=== PATIENT | male | born 1980 | race Caucasian/White ===

== ENCOUNTER 2021-08-08 09:10 | Day surgery (SDC) | payer BC, SELFPAY ==
[2021-08-08] VITALS (11 sets, daily range): BP systolic 94–134; BP diastolic 53–77; PULSE 63–85; RESP 14–18; TEMP 36.9–38.3; O2SAT 93–100; BMI 23.2
--- NOTE | 2021-08-08 | APP_PTH ---
PATIENT: EJNNIFER SORIA LOC: [facility] – [place] U#:[id number] AGE/SX: 41/M ROOM: RE08/08/[address]: Dr. Linda Arevalo MD : 1980 BED: DIS: 08/08/2021 SPEC #: [id number] RECD: 08/09/21 09:56 STATUS: GAY RECristopher #: [id number] BRANDON: 08/08/21 00:[address]: Linda Arevalo DEPT: SURGICAL PATHOLOGY RECD BY: Pierre Boyle ENTERED: 08/09/21 09:56 SP TYPE: APPENDIX OTHR DR: Dr. Brooks Negrete MD Tissues: Appendix, NOS Procedures: Surgery Specimen Level III HEADER OPERATION: Laparoscopic appendectomy PRE-OP DIAGNOSIS: Appendicitis TISSUE SUBMITTED: Appendix MICROSCOPIC DIAGNOSIS Appendix, appendectomy: Acute appendicitis and periappendicitis. KOREY:ava 08/10/2021 MICROSCOPIC DESCRIPTION Slides are reviewed. GROSS DESCRIPTION Received in fixative is one container labeled with the patient's name and designated appendix. The specimen consists of an appendix with attached periappendiceal adipose tissue. The appendix measures 6.5 cm in length and 0.7 cm in diameter. The periappendiceal adipose tissue measures up to 2 cm in width. No obvious perforation is identified. The serosal surface shows focal soria, purulent exudate. No fecalith is identified. Brass Sorter sections are submitted in one cassette. / SJ:ava 08/09/21 TC:2 [facility]: [id number]
--- NOTE | 2021-08-08 09:36 | ED.VIS.GI ---
HPI HPI - GI History of Present Illness Chief Complaint: Abd Pain Narrative Narrative: 41-year-old male presenting with right lower quadrant pain which began last evening. He does admit to a couple episodes of nausea and vomiting. He denies diarrhea or constipation. He denies urinary symptoms. He has not had a fever. Patient has no history of surgeries in his abdomen. He denies any trauma. He states he has no medical problems. Patient has no history of kidney stones. PFSH PFSH Medical History no medical history Home Medications NK 08/08/21 [History Last Taken Unknown] Allergy/AdvReac Type Severity Reaction Status Date / Time Penicillins [PCN] AdvReac Other Verified 08/08/21 09:12 Social History Smoking Status: Current every day smoker tobacco type: cigarettes ROS ROS ED Constitutional Constitutional ED: Denies chills or fever(s) ENT ENT ED: Denies rhinorrhea or sore throat Cardiovascular Cardiovascular: Denies chest pain or palpitations Respiratory/Chest Respiratory/Chest: Denies cough, dyspnea or sputum Gastrointestinal Gastrointestinal: Reports abdominal pain, nausea and vomiting; Denies constipation or diarrhea Genitourinary Genitourinary ED: Denies dysuria, hematuria or urinary frequency Musculoskeletal Musculoskeletal: Denies arthralgias or myalgias Integumentary Denies Abrasions or rash Neurologic Neurologic: Denies headache(s) or paresthesias EXAM Physical Exam Const Vital Signs: 08/08/21 09:12 08/08/21 12:11 08/08/21 12:28 Temperature 98.7 F 98.6 F 98.6 F Temperature Source Temporal Oral Oral Pulse Rate 68 63 64 Respiratory Rate 14 16 16 Respiratory Pattern Blood Pressure 102/66 134/77 H 131/76 H Blood Pressure Mean 78 96 94 Blood Pressure Source Monitor Blood Pressure Position Semi-Fowlers Blood Pressure Location Right Arm Pulse Ox 96 97 98 Oxygen Delivery Method Room Air Room Air Room Air 08/08/21 12:54 Temperature Temperature Source Pulse Rate Respiratory Rate Respiratory Pattern Normal Blood Pressure Blood Pressure Mean Blood Pressure Source Blood Pressure Position Blood Pressure Location Pulse Ox Oxygen Delivery Method Positive well nourished General Appearance ED: NAD; Negative for pallor HEENT Reports moist mucous membranes normocephalic and atraumatic Eyes PERRL and EOMs intact bilaterally Resp normal respiratory effort and clear to auscultation bilaterally Cardio regular rate and regular rhythm GI non-distended GI Narrative: Tenderness palpation right lower quadrant. Back/Spine no CVA tenderness Neuro CN's II-XII intact bilaterally Sensorium / Orientation: alert, oriented to person, oriented to place and oriented to time Psych mental status grossly normal and thought process normal Skin General Skin Exam: Negative for jaundice or pallor Rashes: no rashes MDM MDM MDM Narrative Medical decision making narrative: 41-year-old male presenting with right lower quadrant pain. He did obtain blood work and he does have a leukocytosis of 17.6 with a left shift. Renal function electrolytes are normal. Total bilirubin is slightly elevated 1.4. Urinalysis negative for infection. Patient was given morphine and Zofran for pain and nausea respectively. CT of the abdomen pelvis with p.o. and IV contrast was obtained and does show concern for acute appendicitis. Discussed with Dr. Arevalo who will take the patient to the OR for appendectomy. Patient was given Rocephin and azithromycin because he is penicillin allergic. Patient stable on transfer to the OR. Impression: 1. Acute appendicitis Lab Data Attestation: I reviewed the patient's lab results. Labs: Laboratory Results - last 24 hr 08/08/21 08/08/21 08/08/21 09:30 09:30 10:52 WBC 17.6 H RBC 5.48 Hgb 17.2 H Hct 50.4 MCV 92.0 MCH 31.4 MCHC 34.1 RDW Std Deviation 43.6 RDW Coeff of Emily 12.8 Plt Count 211 MPV 9.7 Immature Gran % (Auto) 0.300 Neut % (Auto) 86.2 H Lymph % (Auto) 7.0 L [place] % (Auto) 6.0 Eos % (Auto) 0.2 Baso % (Auto) 0.3 Absolute Neuts (auto) 15.2 H Absolute Lymphs (auto) 1.24 Nucleated RBC % 0 Sodium 139 Potassium 4.7 Chloride 104 Carbon Dioxide 27.0 Anion Gap 8 BUN 11 Creatinine 1.05 Estim Creat Clear Calc 82.16 Est GFR (MDRD) Af Amer 101 Est GFR (MDRD) Non-Af 83 BUN/Creatinine Ratio 10.5 Glucose 107 H Calcium 9.1 Total Bilirubin 1.40 H Direct Bilirubin 0.22 AST 32 ALT 51 Alkaline Phosphatase 81 Total Protein 7.7 Albumin 4.0 Globulin 3.7 Albumin/Globulin Ratio 1.1 Urine Color Yellow Urine Clarity Clear Urine pH 7.0 Ur Specific [place] 1.005 Urine Protein Negative Urine Glucose (UA) Normal Urine Ketones 5 H Urine Occult Blood Negative Urine Nitrite Negative Urine Bilirubin Negative Urine Urobilinogen Normal Ur Leukocyte Esterase 25 H Urine RBC 0 SEEN Urine WBC 0-5 SEEN Ur Squamous Epith Cells 0 SEEN Urine Bacteria 0 SEEN Urine Mucus 0 SEEN Radiography Diagnostic Testing: Radiology Impression Abdomen/Pelvis CT 08/08/21 11:22 IMPRESSION: Acute uncomplicated appendicitis Indeterminate 7 mm right hepatic lobe lesion (correlate nonemergent ultrasound/MRI) Additional nonemergent findings, as above Electronically Signed: Akil Saul DO at 11:50 EDT Tel , Service support , ADDENDUM: 08/08/21 1209 IMPRESSION: Acute uncomplicated appendicitis Indeterminate 7 mm right hepatic lobe lesion (correlate nonemergent ultrasound/MRI) Additional nonemergent findings, as above N.B. : The above Results were Read Back by Akil Saul DO to Maco Gomez MD, and understanding confirmed on 08/08/2021 12:02:15 (ET). Electronically Signed: Akil Saul DO at 11:50 EDT Tel , Service support , Discharge Plan Disposition Disposition: Acute Care Hospital [facility] Discharge Date/Time: 08/08/21 12:29
[2021-08-08 09:42] LABS: Absolute Lymphocyte Count 1.24 X10^3/uL (0.83-4.51); Absolute Neutrophil Count 15.2 X10^3/uL (2.0-7.7); Basophil# 0.05 X10^3/uL; Basophil% 0.3 % (0-1); Eosinophil# 0.04 X10^3/uL; Eosinophils% 0.2 % (0-5); Hematocrit 50.4 % (40-54); Hemoglobin 17.2 g/dL (13.0-16.5); Lymphocyte # 1.24 X10^3/ul (0.83-4.51); Mean Corp Hgb Conc 34.1 g/dL (32-36); Mean Corpuscular Hgb 31.4 pg (27.0-32.0); Mean Platelet Vol. 9.7 fl (6.2-12.0); Monocyte# 1.06 X10^3/uL; NRBC Flagged by Analyzer 0 % (0-5); Neutrophil # 15.17 X10^3/uL (2.7-7.7); Neutrophil % 86.2 % (47-70); Platelet Count 211 K/mm3 (150-450); RBC Distribution Width CV 12.8 % (11.6-14.6); RBC Distribution Width SD 43.6 fl (35.1-43.9); Red Blood Count 5.48 M/mm3 (4.6-6.2); White Blood Count 17.6 K/mm3 (4.4-11.0)
[2021-08-08 10:03] LABS: ALB/GLOB Ratio 1.1 RATIO (0.9-2.4); AST(SGOT) 32 U/L (15-37); Alanine Aminotransfer ALT/SGPT 51 U/L (16-61); Alkaline Phosphatase 81 U/L (45-117); Anion Gap 8 (5-15); BUN 11 mg/dL (7-18); BUN/Creat Ratio 10.5 RATIO (10-20); Bilirubin, Direct 0.22 mg/dL (0.00-0.30); Calcium,Total 9.1 mg/dL (8.5-10.1); Chloride 104 mmol/L (98-107); Creatinine, Serum 1.05 mg/dL (0.70-1.30); EST Glomerular Filtration Rate 83 mL/min (>60); Est Glom Filt Rate - Afr Amer 101 mL/min (>60); Estimated Creatinine Clearance 82.16 ml/min; Globulin 3.7 g/dL (2.2-4.2); Glucose 107 mg/dL (74-106); Potassium 4.7 mmol/L (3.5-5.1); Protein, Total 7.7 g/dL (6.4-8.2); Sodium Level 139 mmol/L (136-145)
[2021-08-08] MEDS: Morphine 4 MG/ML Syringe IV ×2 (10:06→12:00)
[2021-08-08] MEDS: Ondansetron 4 MG/2 ML Vial IV (10:07)
[2021-08-08] MEDS: 0.9% Normal Saline 1,000 ML 1000 ML IV (10:08)
[2021-08-08 10:58] LABS: Bacteria 0 SEEN /hpf (None Seen); Mucous, Urine 0 SEEN /hpf (<or=2+); Red Blood Cells-Urine 0 SEEN /hpf (0-5); Squamous Epithelial Cells - UA 0 SEEN /hpf (0-5)
[2021-08-08 10:59] LABS: Color, Urine Yellow (Yellow); Glucose, Dipstick Normal (Normal); Ketone-Dipstick 5 mg/dl (Negative); Leukocyte Esterase-Dipstick 25 /ul (Negative); Nitrite-Dipstick Negative (Negative); Occult Blood-Urine Negative /ul (Negative); Protein-Dipstick Negative (Negative); Specific Gravity, Urine 1.005 (1.002-1.030); Urine Bilirubin Dipstick Negative (Negative); Urine Clarity Clear (Clear); Urine Urobilinogen Normal (Normal)
[2021-08-08 11:09] LABS: White Blood Cells 0-5 SEEN /hpf (0-5)
--- NOTE | 2021-08-08 11:22 | CT_ITS ---
We are attempting to reach an attending provider to discuss findings. An addendum with communication details will be sent when the communication is complete. STUDY: CT ABDOMEN AND PELVIS WITH CONTRAST REASON FOR EXAM: Male, 41 years old. RLQ pain -- IV PO Contrast RADIATION DOSAGE (If Supplied By Facility): CTDIvol = ( 14.20 ) mGy, DLP = ( 633.65 ) mGycm TECHNIQUE: Transaxial images were obtained from the dome of the diaphragm to the symphysis pubis with oral contrast. Oral and amp; IV Gastrografin and amp; 100mL Isovue-370 was administered. Sagittal and coronal images were reconstructed. Individualized dose optimization techniques were used for this CT. COMPARISON: None. FINDINGS: Lung bases: Mild air trapping/congestion. Heart: Unremarkable. Liver: Indeterminant low-density right hepatic lobe lesion measuring greater than simple cyst and measuring 7 mm (axial image 26 series 2). No additional hepatic lesions identified. Portal vein patent. Gallbladder/biliary ducts: Unremarkable. Pancreas: Unremarkable. Spleen: Unremarkable. Adrenal glands: Unremarkable. Kidneys/ureters/bladder: Unremarkable. Prostate: Unremarkable. Large bowel/small bowel: Constipation. No acute large bowel or small bowel process. Appendix: Distended appendix with inflammatory changes. No perforation. No abscess. Appendix measures up to 1 cm proximally (axial image 90 series 2). Gastroesophageal junction/stomach: Unremarkable. Retroperitoneum/lymph nodes: No intra-abdominal free air. No ascites. No pathologically enlarged lymph nodes. Vascular: Unremarkable. Osseous structures: Mild degenerative features. No acute process. Subcutaneous/soft tissues: Unremarkable. CT/Abdomen/Pelvis WITH Contrast IMPRESSION: Acute uncomplicated appendicitis Indeterminate 7 mm right hepatic lobe lesion (correlate nonemergent ultrasound/MRI) Additional nonemergent findings, as above Electronically Signed: Akil Saul DO at 11:50 EDT Tel , Service support ,
--- NOTE | 2021-08-08 11:55 | NURSING ---
SURGERY [facility] ACUTE APPENDICITIS
--- NOTE | 2021-08-08 12:00 | PCM.HP.STD ---
HPI - General HPI Narrative JENNIFER SORIA, is a 41 M who presents to the ER due to right lower quadrant abdominal pain started about midnight last night. Patient did have nausea and vomiting as well. CT abdomen pelvis was consistent with acute appendicitis Patient never had any abdominal surgeries. Patient's white blood cell count on admission is 17.6 Patient last ate last night. PFSH Medical History no medical history Allergy/AdvReac Type Severity Reaction Status Date / Time Penicillins [PCN] AdvReac Other Verified 08/08/21 09:12 Social History Smoking Status: Current every day smoker tobacco type: cigarettes Vital Signs Vital Signs Vital Signs: 08/08/21 09:12 Temperature 98.7 F Temperature Source Temporal Pulse Rate 68 Respiratory Rate 14 Blood Pressure 102/66 Blood Pressure Mean 78 Pulse Ox 96 Oxygen Delivery Method Room Air Weight Weight: 139 lb 12.369 oz Body Mass Index (BMI) 23.2 Physical Exam Const alert, oriented x3 and no apparent distress HEENT normocephalic and head/scalp atraumatic Resp normal respiratory effort Cardio regular rate GI soft to palpation; Negative for non-distended Palpation: tender RLQ and Rovsing's sign; Negative for guarding Extremity no clubbing, cyanosis or edema Neuro CN's II-XII intact bilaterally Psych mental status grossly normal Results Lab / Micro Data Result Diagrams: 08/08/21 09:30 08/08/21 09:30 Labs: Laboratory Results - last 24 hr 08/08/21 09:30: WBC 17.6 H, RBC 5.48, Hgb 17.2 H, Hct 50.4, MCV 92.0, MCH 31.4, MCHC 34.1, RDW Std Deviation 43.6, RDW Coeff of Emily 12.8, Plt Count 211, MPV 9.7, Immature Gran % (Auto) 0.300, Neut % (Auto) 86.2 H, Lymph % (Auto) 7.0 L, [place] % (Auto) 6.0, Eos % (Auto) 0.2, Baso % (Auto) 0.3, Absolute Neuts (auto) 15.2 H, Absolute Lymphs (auto) 1.24, Nucleated RBC % 0 08/08/21 09:30: Sodium 139, Potassium 4.7, Chloride 104, Carbon Dioxide 27.0, Anion Gap 8, BUN 11, Creatinine 1.05, Estim Creat Clear Calc 82.16, Est GFR (MDRD) Af Amer 101, Est GFR (MDRD) Non-Af 83, BUN/Creatinine Ratio 10.5, Glucose 107 H, Calcium 9.1, Total Bilirubin 1.40 H, Direct Bilirubin 0.22, AST 32, ALT 51, Alkaline Phosphatase 81, Total Protein 7.7, Albumin 4.0, Globulin 3.7, Albumin/Globulin Ratio 1.1 08/08/21 10:52: Urine Color Yellow, Urine Clarity Clear, Urine pH 7.0, Ur Specific [place] 1.005, Urine Protein Negative, Urine Glucose (UA) Normal, Urine Ketones 5 H, Urine Occult Blood Negative, Urine Nitrite Negative, Urine Bilirubin Negative, Urine Urobilinogen Normal, Ur Leukocyte Esterase 25 H, Urine RBC 0 SEEN, Urine WBC 0-5 SEEN, Ur Squamous Epith Cells 0 SEEN, Urine Bacteria 0 SEEN, Urine Mucus 0 SEEN Micro: Microbiology 08/08/21 10:05 Nasal Secretion SARS-CoV-2 Antigen (Rapid) - Final Radiology Impression Abdomen/Pelvis CT 08/08/21 11:22 IMPRESSION: Acute uncomplicated appendicitis Indeterminate 7 mm right hepatic lobe lesion (correlate nonemergent ultrasound/MRI) Additional nonemergent findings, as above Electronically Signed: Akil Saul DO at 11:50 EDT Tel , Service support , Assessment & Plan Assessment/Plan (1) Acute appendicitis: PLAN: 1. Discussed procedure laparoscopic appendectomy, possible open, possible bowel resection along with the risk but not limited to bleeding, infection/abscess, injury to another organ (small bowel, colon, etc.), adhesion, hernia at incision sites, and anesthesia. Patient no further question this time. Linda Arevalo M.D. Pager: [phone] [facility] [address] [place] [address], [address] [place] [id number] Office: [phone] Procedure Criteria Type of Procedure Procedure Type: Elective Elective Risks - COVID COVID Risk Discussion: The surgeon/proceduralist and patient have discussed in detail the risk of exposure to and/or potential harm posed by the COVID-19 virus with having a surgery/procedure at this time versus the risk of delaying the surgery/procedure. It is not possible to know either the risk of delaying the surgery or procedure or chance of getting an infection with perfect accuracy, but a joint decision was made between the patient and the surgeon/proceduralist to proceed at this time with the scheduled surgery/procedure as indicated on the consent form.
[2021-08-08] MEDS: Ciprofloxacin 400 MG/200 ML BAG 200 MG IV (12:05)
[2021-08-08] MEDS: 0.9% Normal Saline 1,000 ML 100 ML IV (12:57)
[2021-08-08] MEDS: metroNIDAZOLE 500 MG/100 ML BAG 100 MG IV (14:30)
[2021-08-08] MEDS: Lidocaine 1% /Epi 1:100 (20ml) 20 ML Vial (15:05)
--- NOTE | 2021-08-08 15:11 | PCM.OPRPT ---
Report of Operation Date of Procedure: 08/08/21 Pre-Operative Diagnosis: Acute appendicitis Post-Operative Diagnosis: Same Surgery/Procedure Performed:: Laparoscopic appendectomy Surgeon: Linda Arevaol Type of Anesthesia: General/Supplemental Anesthesiologist: Wojciech Najera Special Medications: Cipro 40 mg IV x1 Flagyl 500 mg IV x1 Specimen's removed: Appendix Estimated Blood Loss (mL): < 10 cc Description of Procedure: Indications: 41-year-old male presented to the ER with new right lower quadrant pain at midnight. On workup he was found to have acute appendicitis on CT and a leukocytosis of 17.6. Patient was started on antibiotics in the ER for acute appendicitis-Cipro/Flagyl IV Description of the procedure: The patient was placed on operating table in supine position. General anesthesia was induced. A timeout was completed verifying correct patient, procedure, position and special equipment prior to beginning procedure. Abdomen was prepped and draped in usual sterile fashion. Incision was made in the natural skin line above the umbilicus with a 15 blade scalpel. The fascia was elevated and incised. Entry into the peritoneum was confirmed visually and no bowel was noted in the vicinity of the incision. The Foote trocar was placed under direct vision. Abdomen insufflated with a pressure of 12-15 mmHg. Patient tolerated insertion well. The scope was inserted and the abdomen inspected. No injuries from initial trocar placement were noted. Minimal amount of fluid was seen in the right lower quadrant. An direct visualization 2 -5 mm trocars were placed one above the symphysis pubis and below the hairline and one in the left lower quadrant lateral to the rectus muscle. Care is taken to avoid injury to the bladder and inferior epigastric vessels. The table was placed in Trendelenburg position with the right side elevated. The appendix was grasped with atraumatic grasper and elevated. It was noted to be inflamed. A window was developed in the mesoappendix at the point between the base of the appendix and the cecum. An endoscopic 45 mm linear cutting stapler blue load was then used to divide and staple the base of the appendix. Enseal was used to divide the mesoappendix The appendix was withdrawn into the Foote trocar after being placed endoscopically retrieval bag. Appendix was sent to pathology. Hemostasis was assured at the appendiceal staple line. no other pathology was identified. Secondary trochars were removed under direct visualization. No bleeding was noted trocar sites. The laparoscope withdrawn and the umbilical trocar removed. The abdomen was allowed to collapse. Local anesthesia of 20 mL of lidocaine with epinephrine was used at the incision sites. The umbilical trocar site was closed with the [id number] 0 Vicryl suture. The skin was closed up to clear sutures of 4-0 Monocryl and Steri-Strips. The patient was extubated. The patient tolerated the procedure well and was taken to the postanesthesia care unit in satisfactory condition. Complications none
--- NOTE | 2021-08-08 15:14 | EX.PCM.DISCH ---
Discharge Instructions Diet Discharge Diet: Light diet - advance as tolerated Activity Discharge Activity: May Not Drive (while taking narcotic pain medications.) May shower in (days): 1 Lifting Restrictions: no lifting >20 lbs x 2 wks, no strenuous exercise for 4 wks Dressing / Incision Call your doctor if your incision/area has: Continuous Slow Oozing, Sudden Increased Bleeding, Increased Pain/ Swelling, Increased Redness, Foul Smelling Discharge and Swelling at the incision site Call your doctor if you observe: Fever of 101 or Higher Remove Dressing in: 2 days Cleanse incision/area with: Soap & Water Additional Dressing/Incision Instructions:: Steri-Strips will fall off in 7 to 10 days, if they do not fall off okay to remove after 10 days. Follow Up Care Please Follow Up With: Linda Arevalo MD When: Call the office for a follow-up appointment 2 weeks; after 5 PM and on the weekends call [phone] with any concerns. Test Results: Test results from this visit will be discussed in further detail at your follow-up appointment, if applicable. Discharge Plan Admission Attending Provider: Linda Arevalo Primary Care Provider: Kurtis Negrete Discharge Orders/Prescriptions Prescriptions: New oxycodone-acetaminophen [Endocet] 5-325 mg tablet 1 - 2 tab PO Q6H PRN (Reason: pain) 3 Days Qty: 14 RF: 0 No Action NK RF: 0 Referrals / Follow Up: Kurtis Negrete MD [Primary Care Provider] - Disposition Disposition (needs filled in before D/C Order can be placed): Home, Self Care
[2021-08-08] MEDS: oxyCODONE 5 MG Tablet PO (17:09)
[2021-08-08] MEDS: Acetaminophen 325 MG Tablet 650 MG PO (17:12)
== END 2021-08-08 18:23 | disposition home or self-care (01) ==
LOC: ED 11:50 → SDC 11:58 → AC 12:00
PROVIDERS: Emergency Provider Student in an Organized Health Care Education/Training Program; PCP Family Medicine; Visit Provider Surgery
PROC: 0DTJ4ZZ Resection of Appendix, Percutaneous Endoscopic Approach (ICD-10-PCS; CPT 44970; principal; 2021-08-08 14:25)
DX: K35.80 Unspecified acute appendicitis (principal); F17.210 Nicotine dependence, cigarettes, uncomplicated
CPT/HCPCS: 44970; 74177; 80053; 81001; 82248; 85025; 87426; 88304; 99284; J7030; Q9967; A4216; C1760; J0744; J2405